=== PATIENT | male | born 2000 | race Caucasian/White ===

== ENCOUNTER 2019-04-27 17:51 | Emergency (ER) | payer OTHER, SELFPAY ==
[2019-04-27 19:42] LABS: Absolute Lymphocytes (CBC) 2.3 K/uL (0.7-4.9); Basophils % 1.1 % (0-1.3); Hematocrit 43.4 % (39.6-49.0); Lymphocytes % 25.8 % (15.3-44.8); MPV 9.7 fL (7.6-11.3); RBC Red Blood Cell Count 4.88 M/uL (4.33-5.43)
[2019-04-27 19:56] LABS: ALT/SGPT 81 U/L (12-78); AST/SGOT 21 U/L (15-37); Albumin 3.9 g/dL (3.4-5.0); Alkaline Phosphatase 98 U/L (45-117); BUN Blood Urea Nitrogen 7 mg/dL (7-18); Bicarbonate 28 mmol/L (21-32); Bilirubin Direct 0.2 mg/dL (0-0.2); Bilirubin Total 0.6 mg/dL (0.2-1.0); Glucose Level 109 mg/dL (74-106); Lipase 65 U/L (73-393); Potassium 3.5 mmol/L (3.5-5.1); Protein, Total 6.9 g/dL (6.4-8.2); Sodium Level 144 mmol/L (136-145)
--- NOTE | 2019-04-27 20:05 | ER ---
Nurse's Notes [facility] Name: Moises Vincent Age: 19 yrs Sex: Male : 2000 Arrival Date: 04/27/2019 Time: 17:52 Bed 15 Private MD: Diagnosis: Gastrointestinal hemorrhage, unspecified-Lower, Stable Presentation: 04/27 18:37 Presenting complaint: Patient states: Rectal bleed since 4 days ago. 6-7 months ago it ca1 happened but did not come to the ER or had a check up. Blood is dark red, the first bleeding 4 days ago was a lot of blood, after that there were just streaks, then today it had clots in it. Pt not on blood thinners, no hemorrhoids. Reports Colon Ca in the family. Uncle at 23 of Colon Ca, brother diagnosed at 16 with Colon Ca. Denies fever, N/V/diarrhea. Transition of care: patient was not received from another setting of care. Onset of symptoms was April 27, 2019. Risk Assessment: Do you want to hurt yourself or someone else? Patient reports no desire to harm self or others. Initial Sepsis Screen: Does the patient meet any 2 criteria? No. Patient's initial sepsis screen is negative. Does the patient have a suspected source of infection? No. Patient's initial sepsis screen is negative. Care prior to arrival: None. 18:37 Method Of Arrival: Ambulatory ca1 18:37 Acuity: BESS 3 ca1 Historical: - Allergies: 18:42 NKA; ca1 - Home Meds: 18:42 None [Active]; ca1 - PMHx: 18:42 ADD/ADHD; ca1 - PSHx: 18:42 None; ca1 - Immunization history:: Adult Immunizations up to date. - Coronavirus screen:: The patient has NOT traveled to [place], [place], or [place] in the past 14 days. The patient has NOT had contact with known/suspected case of Coronavirus?. - Social history:: Smoking status: Patient denies any tobacco usage or history of. - Ebola Screening: : Patient negative for fever greater than or equal to 101.5 degrees Fahrenheit, and additional compatible Ebola Virus Disease symptoms Patient denies exposure to infectious person Patient denies travel to an Ebola-affected area in the 21 days before illness onset No symptoms or risks identified at this time. Screenin:29 Abuse screen: Denies threats or abuse. Denies injuries from another. Nutritional iw screening: No deficits noted. Tuberculosis screening: No symptoms or risk factors identified. Fall Risk IV access (20 points). Assessment: 19:29 General: Appears in no apparent distress. Behavior is calm, cooperative. Pain: iw Complains of pain in abdomen diffusely. Neuro: Level of Consciousness is awake, alert, obeys commands, Oriented to person, place, time, situation, Moves all extremities. Full function. Cardiovascular: Patient's skin is warm and dry. Respiratory: Airway is patent Respiratory effort is even, unlabored, Respiratory pattern is regular, symmetrical. GI: Abdomen is flat, non-distended, Reports cramping, rectal bleeding, bloody stool. Derm: Skin is intact, is healthy with good turgor. Musculoskeletal: Range of motion: intact in all extremities. 20:25 Reassessment: Patient appears in no apparent distress at this time. Patient and/or ch family updated on plan of care and expected duration. Pain level reassessed. Patient is alert, oriented x 3, equal unlabored respirations, skin warm/dry/pink. Vital Signs: 18:42 BP 130 / 77; Pulse 81; Resp 17 S; Temp 97.9(O); Pulse Ox 98% on R/A; Weight 99.79 kg ca1 (R); Height 6 ft. 3 in. (190.50 cm); Pain 0/10; 20:10 BP 118 / 76; Pulse 72; Resp 16; Temp 98.3; Pulse Ox 99% on R/A; Pain 3/10; ch 18:42 Body Mass Index 27.50 (99.79 kg, 190.50 cm) ca1 ED Course: 17:52 Patient arrived in ED. as 18:42 Triage completed. ca1 18:42 Arm band placed on right wrist. ca1 18:49 [facility]even [facility] la1 18:49 Mason Dunaway MD is Attending Physician. la1 19:28 Asha López, RN is Primary Nurse. iw 19:29 Initial lab(s) drawn, by me, sent to lab. Inserted saline lock: 20 gauge in right iw antecubital area, using aseptic technique. Blood collected. 20:00 Patient has correct armband on for positive identification. Placed in gown. Bed in low ch position. Call light in reach. Side rails up X 1. Adult w/ patient. 20:00 Pulse ox on. NIBP on. Warm blanket given. PO fluids given. ch 20:10 Primary Nurse role handed off by Asha López, RN ch 20:10 Anusha Barnett, RN is Primary Nurse. ch 20:20 No apparent distress. Resting quietly. ch 20:20 No provider procedures requiring assistance completed. IV discontinued, intact, ch bleeding controlled, No redness/swelling at site. Pressure dressing applied. Administered Medications: 20:10 Drug: Bentyl 20 mg Route: PO; ch 20:20 Follow up: Response: No adverse reaction ch 20:10 Drug: Zofran 4 mg Route: IVP; Site: right antecubital; ch 20:40 Follow up: Response: No adverse reaction ch Outcome: 20:05 Discharge ordered by . la1 20:20 Discharged to home ambulatory, with family. ch 20:20 Condition: stable 20:20 Discharge instructions given to patient, family, Instructed on discharge instructions, follow up and referral plans. medication usage, Demonstrated understanding of instructions, follow-up care, medications, Prescriptions given X 1. 20:32 Patient left the ED. Signatures: Anusha Barnett, RN Eileen Lake ch as Asha López, [place] Keven Newton, SEWING TEACHER-C SEWING TEACHER-Cla1 Mehnaz Hernández RN RN ca1
--- NOTE | 2019-04-27 20:06 | EDPHYS ---
Physician Documentation [facility] Name: Moises Vincent Age: 19 yrs Sex: Male : 2000 Arrival Date: 04/27/2019 Time: 17:52 Bed 15 Private MD: ED Physician Mason Dunaway HPI: 04/27 19:03 This 19 yrs old Male presents to ER via Ambulatory with complaints of Rectal la1 Bleeding. 19:03 The patient presents to the emergency department with bleeding from the rectum/anus, on la1 toilet paper when wiping. Onset: The symptoms/episode began/occurred 3 day(s) ago. Context: the patient after having BM. Modifying factors: The symptoms are alleviated by nothing, The symptoms are aggravated by bowel movement. Associate signs and symptoms: Pertinent positives: abdominal pain in the abdomen diffusely. The patient has not experienced similar symptoms in the past. brother and uncle dx with colon CA in their teens and 20s. Historical: - Allergies: 18:42 NKA; ca1 - Home Meds: 18:42 None [Active]; ca1 - PMHx: 18:42 ADD/ADHD; ca1 - PSHx: 18:42 None; ca1 - Immunization history:: Adult Immunizations up to date. - Coronavirus screen:: The patient has NOT traveled to [place], [place], or [place] in the past 14 days. The patient has NOT had contact with known/suspected case of Coronavirus?. - Social history:: Smoking status: Patient denies any tobacco usage or history of. - Ebola Screening: : Patient negative for fever greater than or equal to 101.5 degrees Fahrenheit, and additional compatible Ebola Virus Disease symptoms Patient denies exposure to infectious person Patient denies travel to an Ebola-affected area in the 21 days before illness onset No symptoms or risks identified at this time. ROS: 19:05 Constitutional: Negative for fever, chills, and weight loss, Eyes: Negative for injury, la1 pain, redness, and discharge, ENT: Negative for injury, pain, and discharge, Neck: Negative for injury, pain, and swelling, Cardiovascular: Negative for chest pain, palpitations, and edema, Respiratory: Negative for shortness of breath, cough, wheezing, and pleuritic chest pain. 19:05 Back: Negative for injury and pain, MS/Extremity: Negative for injury and deformity, Skin: Negative for injury, rash, and discoloration, Neuro: Negative for headache, weakness, numbness, tingling, and seizure, Endocrine: Negative for neck swelling, polydipsia, polyuria, polyphagia, and marked weight changes, Hematologic/Lymphatic: Negative for swollen nodes, abnormal bleeding, and unusual bruising. 19:05 Abdomen/GI: Positive for abdominal pain, rectal bleeding. Exam: 19:05 Constitutional: This is a well developed, well nourished patient who is awake, alert, la1 and in no acute distress. Head/Face: Normocephalic, atraumatic. Eyes: Pupils equal round and reactive to light, extra-ocular motions intact. Lids and lashes normal. Conjunctiva and sclera are non-icteric and not injected. Cornea within normal limits. Periorbital areas with no swelling, redness, or edema. ENT: Nares patent. No nasal discharge, no septal abnormalities noted. Tympanic membranes are normal and external auditory canals are clear. Oropharynx with no redness, swelling, or masses, exudates, or evidence of obstruction, uvula midline. Mucous membranes moist. Neck: Trachea midline, no thyromegaly or masses palpated, and no cervical lymphadenopathy. Supple, full range of motion without nuchal rigidity, or vertebral point tenderness. No Meningismus. Chest/axilla: Normal chest wall appearance and motion. Nontender with no deformity. No lesions are appreciated. Cardiovascular: Regular rate and rhythm with a normal S1 and S2. No gallops, murmurs, or rubs. Normal PMI, no JVD. No pulse deficits. Respiratory: Lungs have equal breath sounds bilaterally, clear to auscultation Abdomen/GI: Soft, non-tender, with normal bowel sounds. No distension or tympany. No guarding or rebound. No evidence of tenderness throughout. Back: No spinal tenderness. No costovertebral tenderness. Full range of motion. Skin: Warm, dry with normal turgor. Normal color with no rashes, no lesions, and no evidence of cellulitis. MS/ Extremity: Pulses equal, no cyanosis. Neurovascular intact. Full, normal range of motion. 19:43 Abdomen/GI: Inspection: abdomen appears normal, Bowel sounds: normal, in all quadrants, la1 Palpation: abdomen is soft and non-tender, in all quadrants, Rectal exam: hemorrhoid(s), no external hemorrhoids noted. Vital Signs: 18:42 BP 130 / 77; Pulse 81; Resp 17 S; Temp 97.9(O); Pulse Ox 98% on R/A; Weight 99.79 kg ca1 (R); Height 6 ft. 3 in. (190.50 cm); Pain 0/10; 20:10 BP 118 / 76; Pulse 72; Resp 16; Temp 98.3; Pulse Ox 99% on R/A; Pain 3/10; ch 18:42 Body Mass Index 27.50 (99.79 kg, 190.50 cm) ca1 MDM: 18:49 Patient medically screened. la1 20:03 Data reviewed: vital signs, nurses notes, lab test result(s), I have discussed the la1 patient's presentation/case with the attending Emergency Department Physician; and as a result, I will. Data interpreted: Pulse oximetry: on room air is 98 %. Interpretation: normal. Counseling: I had a detailed discussion with the patient and/or guardian regarding: the historical points, exam findings, and any diagnostic results supporting the discharge/admit diagnosis, lab results, the need for outpatient follow up, a ladle patcher, to return to the emergency department if symptoms worsen or persist or if there are any questions or concerns that arise at home. Special discussion: Further emergent ED testing is not indicated at this point in time. I discussed with the patient/guardian in detail the need to arrange with the PCP or specialist further outpatient testing, colonoscopy . Based on the history and exam findings, there is no indication for further emergent testing or inpatient evaluation. I discussed with the patient/guardian the need to see the ladle patcher for further evaluation of the symptoms. 04/27 18:52 Order name: Basic Metabolic Panel [facility] 04/27 18:52 Order name: CBC with Diff; Complete Time: 19:59 [facility] 04/27 18:52 Order name: Creatinine for Radiology; Complete Time: 19:59 ri04/27 18:52 Order name: Hepatic Function; Complete Time: 19:59 la04/27 18:52 Order name: Lipase; Complete Time: 19:59 [facility] 04/27 18:53 Order name: Basic Metabolic Panel; Complete Time: 19:59 [facility] 04/27 18:52 Order name: IV Saline Lock; Complete Time: 19: la1 04/27 18:52 Order name: Labs collected and sent; Complete Time: la Administered Medications: 20:10 Drug: Bentyl 20 mg Route: PO; 20:20 Follow up: Response: No adverse reaction 20:10 Drug: Zofran 4 mg Route: IVP; Site: right antecubital; 20:40 Follow up: Response: No adverse reaction Disposition: 04/28 07:25 Co-signature as Attending Physician, Mason Dunaway MD I agree with the assessment and [facility] plan of care. Disposition: 04/27/19 20:05 Discharged to Home. Impression: Gastrointestinal hemorrhage, unspecified - Lower, Stable. - Condition is Stable. - Discharge Instructions: Hemorrhoids, Rectal Bleeding, Rectal Bleeding, [id number]. - Prescriptions for Miralax 17 gram/dose Oral - take 1 packet by ORAL route once daily dilute powder in 8 ounces of water or juice; 1 box. - Work release form, Medication Reconciliation Form, Thank You Letter form. - Follow up: Private Physician; When: 1 week; Reason: Recheck today's complaints, Re-evaluation by your physician. Follow up: Emergency Department; When: As needed; Reason: Worsening of condition. - Problem is new. - Symptoms have improved. Signatures: Dispatcher [employer] Anusha Gil[place], Mason Friend RN, ch, MD MD cha Attema, Lee, DRYWALLER-C DRYWALLER-Cla1 Mehnaz Hernández RN RN ca1 Corrections: (The following items were deleted from the chart) 04/27 20:32 20:05 04/27/2019 20:05 Discharged to Home. Impression: Gastrointestinal hemorrhage, ch unspecified - Lower, Stable. Condition is Stable. Forms are Medication Reconciliation Form, Thank You Letter, Antibiotic Education, Prescription Opioid Use. Follow up: Private Physician; When: 1 week; Reason: Recheck today's complaints, Re-evaluation by your physician. Follow up: Emergency Department; When: As needed; Reason: Worsening of condition. Problem is new. Symptoms have improved. la1
[2019-04-27 20:54] VITALS: BP 130/77; TEMP 97.9; O2SAT 98
== END 2019-04-27 20:32 | disposition home or self-care (01) ==
LOC: ER 17:51
DX: K92.2 Gastrointestinal hemorrhage, unspecified (principal)
CPT/HCPCS: 36415; 80048; 80076; 83690; 85025; 96374; 99284